=== PATIENT | female | born 1990 | race Caucasian/White ===

== ENCOUNTER 2021-09-17 14:03 | Emergency (ER) | payer OTHER ==
--- OUTSIDE RECORDS SUMMARY | 2021-09-17 14:07 | XMS REPORT | Continuity of Care Document ---
:1990 Author Organization [facility] t Address [address] [place] [address] Care Team Providers Name Role Phone Jeanette Woodard Primary Care Physician Melanie Attending Clinician Unavailable Lucien COOPER Attending Clinician Luis HURTADO Attending Clinician LUIS Attending Clinician Unavailable Doctor Unassigned, Name Attending Clinician Unavailable Bisi JONES, T Attending Clinician Unavailable EVAN Attending Clinician Unavailable ISELA Attending Clinician Unavailable Bev Attending Clinician [phone] Carole Fisher Attending Clinician [phone] KIMBERLYN Attending Clinician Unavailable Provider, Urgent Care Attending Clinician Unavailable Evgeny JONES, S Attending Clinician Unavailable Lab, Fam Pob I Attending Clinician Unavailable Aisha HURTADO Attending Clinician AISHA Attending Clinician Unavailable Karri Attending Clinician [phone] Ruben Attending Clinician [phone] KAVON Attending Clinician Unavailable EVAN Admitting Clinician Unavailable ISELA Admitting Clinician Unavailable KIMBERLYN Admitting Clinician Unavailable Payers Payer Name Policy Type Policy Number Effective Date Expiration Date Rajan pittman [facility] [id number] 2019 00:00:00 [employer] (MEDICAID HMO) Problems Condition Condition Condition Status Onset Resolution Last Treating Co mments Source Name Details Category Date Date Treatment Clinician Date Ulnar Ulnar Problem Active Univers neuropathy neuropathy HL7.CCDAR2 [facility] [place] [facility] Chronic Chronic Problem Active Univers headache headache HL7.CCDAR2 it [facility] [place] [facility] Median Median Problem Active Univers neuropathy neuropathy HL7.CCDAR2 [facility] [place] [facility] History of History of Problem Resolve Univers depression depression HL7.CCDAR2 d [facility] [place] [facility] No known No known Disease Unive rs active active ity of problems problems [facility] Carpal Problem Active 2019-12-27 Memor ia tunnel 00:04:06 l syndrome Carpal Kwadwo n (disorder) tunnel syndrome (disorder) Active Problem 12/27/2019 [facility] 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 NO KNOWN Drug Active Univers ALLERGIE Class ity of S [facility] Latex Adverse Active Info Not [facility] Reaction Available [facility] Family History Family Member Diagnosis Comments Start Date Stop Date Source Mother Family history of Univers ity of Hyperthyroidism with [facility] [place] [facility] Maria D disease Father Family history of Univers ity of hypertension [place] [facility] Father Family history of Univers ity of diabetes mellitus [place] [facility] Social History Social Habit Start Date Stop Date Quantity Comments Source Exposure to Not sure [facility] SARS-CoV-2 (event) Medica l Branch Tobacco use and 2021-08-28 2021-08-28 Never used [facility] exposure 00:00:00 00:00:00 Medical Branch Sex Ass[birth year] [facility] 00:00:00 00:00:00 Medical Branch Smoking Status Start Date Stop Date Source Unknown if ever smoked Universit y [facility] [place] Never smoker [facility] [place] [facility] Medications Ordered Filled Start Stop Current Ordering Indication Dosage Frequency Signature Comments Components Source Medication Medication Date Date Medication? Clinician (SIG) Name Name triamcinolo 2021- No [id number] 40mg Univers ne 08-28 ity of acetonide 23:00: 22:03 [place] (KENALOG) 00 :00 Medical injection Branch 40 mg triamcinolo 2021- No [id number] 40mg 40 mg, Univers ne 08-28 Intramuscu ity of acetonide 23:00: 22:03 [place], ONCE, [place] ([place] 00 :00 1 dose, On Medi camryn injection Tue Branch 40 mg 08/28/21 at 1800, Routine cetirizine Yes [id number] 10mg Take 1 Univers (ZYRTEC) 10 -22 tablet by ity of mg tablet 00:00: mouth [place] 00 daily. Medical Branch famotidine Yes [id number] 40mg Take 1 Univers 40 mg - tablet by ity of tablet 00:00: mouth 2 [place] 00 (two) Medical times Branch daily. Diclofenac Diclofenac Yes PHIL 1 TAKE 1 Univers Potassium Potassium 8-30 BROWN M.D. TABLET ity of 50 MG Oral 50 MG Oral 00:00: ONCE PRN [place] Tablet Tablet 00 headache Physici ans Escitalopra Escitalopra Yes Nadeem not [facility] m Oxalate m Oxalate Simmons defined [facility] Escitalopra Escitalopra Yes U nivers m Oxalate m Oxalate ity o f 20 MG Oral 20 MG Oral [place] Tablet Tablet Physici ans Immunizations Ordered Filled Immunization Date Status Comments Sourc e Immunization Name Name TD 2017-03-09 Completed [facility] 00:00:00 [facility] TDAP 2017-03-09 Completed [facility] 00:00:00 [facility] TDAP 2017-03-09 Completed [facility] :00:00 [facility] TDAP 2017-03-09 Completed [facility] 00:00:00 [facility] TDAP 2017-03-09 Completed [facility] 00:00:00 [facility] TDAP 2017-03-09 Completed [facility] 00:00:00 [facility] TDAP 2017-03-09 Completed [facility] :00:00 [place] [facility] Vital Signs Vital Name Observation Time Observation Value Comments Source Systolic blood 2021-08-28 112 mm[Hg] University of pressure 21:45:00 [facility] Diastolic blood 2021-08-28 70 mm[Hg] University o f pressure 21:45:00 [facility] Heart rate 2021-08-28 70 /min University 21:45:00 [facility] Body temperature 2021-08-28 36.56 Clementina [facility] 21:45:00 [facility] Respiratory rate 2021-08-28 18 /min University 21:45:00 [facility] Body height 2021-08-28 149.9 cm University 21:45:00 [facility] Body weight 2021-08-28 82.101 kg University 21:45:00 [facility] BMI 2021-08-28 36.56 kg/m2 University 21:45:00 [facility] Oxygen saturation 2021-08-28 100 /min [facility] Arterial blood 21:45:00 [facility] by Pulse oximetry Branch BP Systolic 2018-02-04 96 mm[Hg] Location: [facility] 10:20:00 Position: [place] [facility] Sitting BP Diastolic 2018-02-04 63 mm[Hg] Location: [facility] 10:20:00 Position: [place] [facility] Sitting Height 2018-02-04 59 [in_us] [facility] 10:20:00 [place] [facility] Weight 2018-02-04 159 [lb_av] [facility] 10:20:00 [place] [facility] Body Mass Index 2018-02-04 32.11 kg/m2 University o f Calculated 10:20:00 [place] [facility] Temperature 2018-02-04 98.6 [degF] Method: Oral [facility] 10:20:00 [place] [facility] Heart Rate 2018-02-04 62 /min Location: R [facility] 10:20:00 Brachial [place] [facility] Artery; Procedures Procedure Date / Time Performing Clinician Source Performed ASSIGNMENT OF BENEFITS 2021-08-28 21:37:32 Doctor Unassigned, Un iversity [facility] [place] [facility] [UTP] EMG 2018-02-04 00:00:00 University o f [place] [facility] History of Cholecystectomy Unive [facility] Physicians Plan of Care Planned Activity Planned Date Details Comments Source Diagnostic Test 2018-02-04 [UTP] EMG [code = [facility] Pending 00:00:00 [UTP] EMG] Physicians Encounters Start End Encounter Admission Attending Care Care Encounter Source Date/Time Date/Time Type Type Clinicians Facility Department ID 2021-08-17 Outpatient Karri ACTIVITY THERAPY SPECIALIST, [facility] [id number] [facility] 09:18[facility]01 [facility] 2021-08-14 Outpatient Karri ACTIVITY THERAPY SPECIALIST, [facility] [id number] [facility] 11:[facility]03 [facility] 2021-07-04 Outpatient Karri ACTIVITY THERAPY SPECIALIST, [facility] [id number] [facility] 11:27:46 [facility] 2021-07-04 Outpatient Melanie, [facility] [id number] [facility] 11:26:38 Audie [id number] [facility] 2021-08-28 2021-08-28 Urgent Eneida Mcgraw [facility] [id number] Univers 16:40:00 17:00:00 Care [facility] [id number] ity of [place] [id number] [place] MEÑO?BLEA [phone] [address] MEDICAL OFFICE BUILDING 2021-08-28 2021-08-28 Outpatient R [facility] [id number] Univers 16:40:00 16:40:00 [id number] ity of [facility] 2021-08-28 2021-08-28 Outpatient R [facility] [id number] Univers 16:40:00 16:40:00 [facility] ity o f [facility] 2021-08-28 2021-08-28 Orders Doctor JAMIE [id number] Univers 00:00:00 00:00:00 Only Unassigned, ELIAS [id number] [facility] [id number] [place] [phone] [address] 2021-08-21 2021-08-21 ambulatory [facility] [id number] [facility] 2021-08-03 2021-08-03 Letter JAMIE Mathews [id number] Univers 00:00:00 00:00:00 (Out) Edith GRIFFIN [id number] [facility] [id number] [place] [phone] [place] [address] Branch 2021-07-16 2021-07-16 Outpatient BEV_S [facility] [id number] [place] 05:07:00 05:07:00 [facility] 2021-04-19 2021-04-19 Outpatient [facility] [address] [place] 04:48:00 04:48:00 _L 111 [facility] 2021-04-19 2021-04-19 [facility] [id number] 00:00:00 00:00:00 Amelia [id number] 2021-04-13 2021-04-13 Outpatient [facility] [id number] 09:40:00 09:40:00 _L 105 [facility] 2021-04-13 2021-04-13 Outpatient [facility] [id number] 00:00:00 00:00:00 , Janel [id number] Carole [id number] 2021-04-13 2021-04-13 Outpatient [facility] [id number] 00:00:00 00:00:00 , Janel [id number] Carole [id number] 2021-04-09 2021-04-09 Outpatient [facility] [id number] 04:24:00 04:24:00 _L 101 [facility] 2021-02-09 2021-02-09 Outpatient [facility] [address] 10:22:00 10:22:00 _L 903 [facility] 2021-02-09 2021-02-09 Outpatient Bev [facility] [id number] 00:00:00 00:00:00 Amelia [id number] 2021-02-09 2021-02-09 Outpatient Bev [facility] [id number] 00:00:00 00:00:00 Amelia [id number] 2020-10-19 2020-10-19 Outpatient [facility] [id number] 04:10:00 04:10:00 _L 513 [facility] 2020-10-19 2020-10-19 Outpatient [facility] [address] 04:10:00 04:10:00 _L 519 [facility] 2020-09-12 2020-09-12 Outpatient [facility] [address] 09:23:00 09:23:00 _L 406 [facility] 2020-07-31 2020-07-31 Outpatient [facility] [address] [place] 12:01:00 12:01:00 _L 222 [facility] 2020-07-18 2020-07-18 Outpatient [facility] [address] 04:40:00 04:40:00 _L 209 [facility] 2020-06-30 2020-06-30 Outpatient [facility] [address] 09:49:00 09:49:00 _L 122 [facility] 2020-06-29 2020-06-29 Outpatient [facility] [address] 04:56:00 04:56:00 _L 121 [facility] 2020-06-29 2020-06-29 Outpatient [facility] [id number] 00:00:00 00:00:00 , Janel [id number] Carole [id number] 2020-06-05 2020-06-05 Outpatient [facility]NER[facility] 79- [place] 05:34:00 05:34:00 228 [facility] 2020-05-31 2020-05-31 Patient Provider, JAMIE [id number] Univers 00:00:00 00:00:00 Secure Msg Ang Urgent ELIAS [id number] ity of [facility] [id number] [place] [phone] [address] 2020-05-31 2020-05-31 Telephone PepperJAMIE [id number] Univers 00:00:00 00:00:00 Sylvia Tolentino ELIAS [id number] ity of [facility] [id number] [place] [phone] [address] 2020-05-29 2020-05-29 Laboratory Lab, Adc Fam Pob I [facility] [id number] Univers 09:23:48 09:36:10 Only Amalia [facility] [id number] ity of [place] [id number] [place] Professio [phone] [address] Office Building One 2020-05-29 2020-05-29 Outpatient R AISHA [facility] [id number] Univers 09:20:00 09:20:00 AMALIA ity of [facility] 2020-05-29 2020-05-29 Letter Doctor JAMIE [id number] Univers 00:00:00 00:00:00 (Out) Unassigned, ELIAS [id number] ity of [place] [id number] [place] [phone] [address] 2020-05-29 2020-05-29 Letter Aisha [facility] [id number] Univers 00:00:00 00:00:00 (Out) Amalia [facility] [id number] it y of [place] [id number] [place] Gisela [phone] [place] dical nal [address] 2020-02-18 2020-02-18 Outpatient MHIE MHIE [id number] Memoria 14:15:00 14:15:00 02 l Cristopher 2019-12-24 2019-12-25 Outpatient nullFlavo MNA [id number] Memoria 13:15:00 04:59:59 r Neurology 01 l [place] Cristopher 2019-12-24 2019-12-24 Ambulatory nullFlavo MNA [id number] Memoria 13:15:00 13:15:00 Pre-Reg r Neurology 00 l [place] 2019-11-30 2019-11-30 [facility] [id number] 11:40:00 11:40:00 t [facility] 2019-11-22 2019-11-22 Out[facility] [id number] 14:30:00 14:30:00 t [facility] Clin[facility] 2019-10-29 2019-10-29 Outpatient Karri [facility] [id number] 00:00:00 00:00:00 Julia [id number] 2019-10-28 2019-10-28 Outpatient Ruben [facility] [id number] 00:00:00 00:00:00 Lauren [id number] 2018-02-04 2018-02-04 Appointmen EDMUNDO JACOBSON Neurology [id number] Univers 10:00:00 10:00:00 t; PHIL JACOBSON ity of Romana VILLARREAL M.D. Physici ans Results This patient has no known results.
--- NOTE | 2021-09-17 15:18 | RAD REPORT ---
EXAM DESCRIPTION: RAD - Knee Left 3 View - 09/17/2021 3:03 pm CLINICAL HISTORY: PAIN COMPARISON: No comparisons FINDINGS: Mild medial compartment narrowing. A suprapatellar joint effusion is likely present, moder ate in size. No fracture or dislocation seen. Followup nonemergent MRI imaging would be suggested to assess for internal derangement.
--- NOTE | 2021-09-17 15:53 | ER ---
Nurse's Notes [facility] Name: Sheba Leos Age: 31 yrs Sex: Female : 1990 Arrival Date: 09/17/2021 Time: 14:06 Bed 4 Private MD: Diagnosis: Unspecified internal derangement of left knee Presentation: 09/17 14:21 Chief complaint: Patient states: "It started yesterday and I think I overworked my left jd3 knee. It is swollen and bruised so i think I tore something. tramadol didn't help and hydrocodone didn't help ether. It gave out on me yesterday.". Coronavirus screen: At this time, the client does not indicate any symptoms associated with coronavirus-19. Ebola Screen: No symptoms or risks identified at this time. Initial Sepsis Screen: Does the patient meet any 2 criteria? No. Patient's initial sepsis screen is negative. Does the patient have a suspected source of infection? No. Patient's initial sepsis screen is negative. Risk Assessment: Do you want to hurt yourself or someone else? Patient reports no desire to harm self or others. Onset of symptoms was September 16, 2021. 14:21 Method Of Arrival: Ambulatory jd3 14:21 Acuity: KRISTAL 4 jd3 Triage Assessment: 14:28 General: Appears in no apparent distress. comfortable, Behavior is calm, cooperative, jd3 appropriate for age. Pain: Complains of pain in left knee Quality of pain is described as sharp, shooting, tender. EENT: No signs and/or symptoms were reported regarding the EENT system. Neuro: Level of Consciousness is awake, alert, obeys commands, Oriented to person, place, time, situation. Cardiovascular: Capillary refill < 3 seconds Patient's skin is warm and dry. Respiratory: Airway is patent Respiratory effort is even, unlabored, Respiratory pattern is regular, symmetrical, Denies cough, shortness of breath. GI: No signs and/or symptoms were reported involving the gastrointestinal system. : No signs and/or symptoms were reported regarding the genitourinary system. Derm: Skin is intact, Skin is dry, Skin is normal, Skin temperature is warm. Musculoskeletal: Circulation, motion, and sensation intact. Range of motion: limited in left knee. SHANK TURNER: 14:25 LMP N/A - control method jd3 Historical: - Allergies: 14:24 Codeine; jd3 14:24 Adhesives; jd3 - Home Meds: 14:24 citalopram oral [Active]; cetirizine oral [Active]; jd3 - PMHx: 14:24 seasonal allergies; jd3 - PSHx: 14:24 Cholecystectomy; jd3 - Immunization history:: Adult Immunizations up to date, Client reports receiving the 2nd dose of the Covid vaccine, Flu vaccine is not up to date. - Social history:: Smoking status: Patient denies any tobacco usage or history of. Screenin:20 Abuse screen: Denies threats or abuse. Denies injuries from another. Nutritional ww screening: No deficits noted. Tuberculosis screening: No symptoms or risk factors identified. Fall Risk None identified. Assessment: 16:20 General: Appears in no apparent distress. comfortable, Behavior is calm, cooperative. ww Pain: Complains of pain in left knee. Neuro: Level of Consciousness is awake, alert, obeys commands, Oriented to person, place, time, situation, Speech is normal. Cardiovascular: Patient's skin is warm and dry. Respiratory: Airway is patent Respiratory effort is even, unlabored, Respiratory pattern is regular, symmetrical. GI: No signs and/or symptoms were reported involving the gastrointestinal system. : No signs and/or symptoms were reported regarding the genitourinary system. EENT: No signs and/or symptoms were reported regarding the EENT system. Vital Signs: 14:25 BP 116 / 86; Pulse 74; Resp 16 S; Temp 97.6(TE); Pulse Ox 100% on R/A; Weight 79.38 kg jd3 (R); Height 4 ft. 11 in. (149.86 cm) (R); Pain 10/10; 14:25 Body Mass Index 35.35 (79.38 kg, 149.86 cm) jd3 ED Course: 14:06 Patient arrived in ED. mr 14:23 Triage completed. jd3 14:25 Cody Yancey NP is PHCP. pm1 14:25 Kurtis Graves MD is Attending Physician. pm1 14:26 Arm band placed on. jd3 14:28 Patient notified of wait time. jd3 15:05 Knee Left 3 View XRAY In Process Unspecified. EDMS 15:54 Liliam Valdez, RN is Primary Nurse. ww 16:20 Patient has correct armband on for positive identification. Bed in low position. Call ww light in reach. Side rails up X 1. 16:20 No provider procedures requiring assistance completed. Patient did not have IV access ww during this emergency room visit. Administered Medications: 16:19 Drug: Ketorolac 60 mg Route: IM; Site: left gluteus; ww 16:19 Drug: Lidoderm Patch 5 % (700 mg/patch) 1 patches Route: Topical; Site: affected area; ww Outcome: 15:52 Discharge ordered by MD. pm1 16:20 Discharged to home via wheelchair. ww 16:20 Condition: stable 16:20 Discharge instructions given to patient, Instructed on discharge instructions, follow up and referral plans. medication usage, safety practices, crutch walking, Demonstrated understanding of instructions, follow-up care, medications, crutch walking, splint care, Prescriptions given X 1. 16:21 Patient left the ED. ww Signatures: Dispatcher [employer] [facility] Nena Barajas mr YanceyCody, BURGLAR ALARM OPERATOR BURGLAR ALARM OPERATOR pm1 Krishna Kumar, ROBERT RN jLiliam Rahman, RN RN ww Corrections: (The following items were deleted from the chart) 14:24 14:21 Chief complaint: Patient states: "It started yesterday and I think I overworked jd3 my left knee. It is swollen and bruised so i think I tore something. tramadol didn't help and hydrocodone didn't help ether." jd3
--- NOTE | 2021-09-17 15:53 | EDPHYS ---
Physician Documentation [facility] Name: Sheba Leos Age: 31 yrs Sex: Female : 1990 Arrival Date: 09/17/2021 Time: 14:06 Bed 4 Private MD: ED Physician Kurtis Graves HPI: 09/17 14:33 This 31 yrs old Female presents to ER via Ambulatory with complaints of Fall Injury, pm1 Knee Injury. 14:33 Onset: The symptoms/episode began/occurred Ongoing for a few weeks. She saw orthopedics pm1 last week for the same complaint and was recommended a MRI. Her insurance company is not approving her MRI so the patient was sent to the ER with the anticipation that a MRI could be performed. Associated injuries: The patient sustained left knee. Severity of symptoms: in the emergency department the symptoms are actually worse, left knee buckled and she fell down. No injury. The patient has not experienced similar symptoms in the past. The patient has been recently seen by a physician: an orthopedic surgeon, with similar presenting complaints, recommended MRI. SUPPLY CHAIN COORDINATOR: 14:25 LMP N/A - control method jd3 Historical: - Allergies: 14:24 Codeine; jd3 14:24 Adhesives; jd3 - Home Meds: 14:24 citalopram oral [Active]; cetirizine oral [Active]; jd3 - PMHx: 14:24 seasonal allergies; jd3 - PSHx: 14:24 Cholecystectomy; jd3 - Immunization history:: Adult Immunizations up to date, Client reports receiving the 2nd dose of the Covid vaccine, Flu vaccine is not up to date. - Social history:: Smoking status: Patient denies any tobacco usage or history of. ROS: 14:33 Constitutional: Negative for fever, chills, and weight loss, Cardiovascular: Negative pm1 for chest pain, palpitations, and edema, Respiratory: Negative for shortness of breath, cough, wheezing, and pleuritic chest pain. 14:33 Skin: Negative for injury, rash, and discoloration, Neuro: Negative for headache, weakness, numbness, tingling, and seizure. 14:33 MS/extremity: Positive for pain, of the left knee, Negative for decreased range of motion, deformity. 14:33 All other systems are negative. Exam: 14:33 Constitutional: This is a well developed, well nourished patient who is awake, alert, pm1 and in no acute distress. Head/Face: Normocephalic, atraumatic. 14:33 Skin: Warm, dry with normal turgor. Normal color with no rashes, no lesions, and no evidence of cellulitis. 14:33 Cardiovascular: Exam negative for acute changes, Rate: normal, Rhythm: regular, Pulses: no pulse deficits are appreciated. 14:33 Respiratory: Exam negative for acute changes, respiratory distress, shortness of breath. 14:33 Musculoskeletal/extremity: Extremities: grossly normal except: noted in the medial aspect of left knee pain with medial rotation and valgus stressin:33 Neuro: Exam negative for acute changes, Orientation: is normal, Mentation: is normal, Motor: moves all fours. Vital Signs: 14:25 BP 116 / 86; Pulse 74; Resp 16 S; Temp 97.6(TE); Pulse Ox 100% on R/A; Weight 79.38 kg jd3 (R); Height 4 ft. 11 in. (149.86 cm) (R); Pain 10/10; 14:25 Body Mass Index 35.35 (79.38 kg, 149.86 cm) jd3 MDM: 14:44 Data reviewed: vital signs. Data interpreted: Pulse oximetry: on room air is 100 %. pm1 Interpretation: normal. 15:03 Patient medically screened. pm1 15:51 Counseling: I had a detailed discussion with the patient and/or guardian regarding: the pm1 historical points, exam findings, and any diagnostic results supporting the discharge/admit diagnosis, radiology results, the need for outpatient follow up, for definitive care, a orthopedic surgeon, to return to the emergency department if symptoms worsen or persist or if there are any questions or concerns that arise at home. 16:08 ED course: No crutches available in the hospital. A prescription was provided. pm1 09/17 14:33 Order name: Knee Left 3 View XRAY; Complete Time: 15:25 pm1 09/17 14:33 Order name: Knee Immobilizer; Complete Time: 16:19 pm1 Administered Medications: 16:19 Drug: Ketorolac 60 mg Route: IM; Site: left gluteus; ww 16:19 Drug: Lidoderm Patch 5 % (700 mg/patch) 1 patches Route: Topical; Site: affected area; ww Disposition: 19:15 Co-signature as Attending Physician, Kurtis Graves MD. rn Disposition Summary: 09/17/21 15:52 Discharge Ordered Location: Home pm1 Problem: new pm1 Symptoms: have improved pm1 Condition: Stable pm1 Diagnosis - Unspecified internal derangement of left knee pm1 Followup: pm1 - With: Emergency Department - When: As needed - Reason: Worsening of condition Followup: pm1 - With: Private Physician - When: 2 - 3 days - Reason: Recheck today's complaints, Continuance of care, Re-evaluation by your physician Discharge Instructions: - Discharge Summary Sheet pm1 - Crutch Use, Adult pm1 - How to Use a Knee Immobilizer pm1 - Acute Knee Pain, Adult pm1 Forms: - Medication Reconciliation Form pm1 - Thank You Letter pm1 - Antibiotic Education pm1 - Prescription Opioid Use pm1 Prescriptions: - Tylenol-Codeine #3 300 mg-30 mg Oral - take 2 tablet by ORAL route every 6 hours As needed; 20 tablet; Refills: 0, pm1 Product Selection Permitted - Crutches - One pair of Adult crutches; ; Refills: 0, Product Selection Permitted pm1 Signatures: Dispatcher [employer] EDKurtis Raines MD MD rn Marinas, Patrick, [employer] PRODUCE RUNNER pm1 Krishna Kumar RN RN Liliam Bautista RN RN ww Corrections: (The following items were deleted from the chart) 16:19 16:07 Crutches ordered. pm1 ww
[2021-09-17] MEDS ORDERED: LIDOCAINE 4% PATCH ONE (15:54)
[2021-09-17] MEDS ORDERED: KETOROLAC 30 MG/ML INJ ONE (15:54)
[2021-09-17 18:49] VITALS: BP 116/86; TEMP 97.6; O2SAT 100
== END 2021-09-17 16:21 | disposition home or self-care (01) ==
LOC: ER 14:03
DX: M23.92 Unspecified internal derangement of left knee (principal); W18.30XA Fall on same level, unspecified, initial encounter; Z88.5 Allergy status to narcotic agent; Z91.048 Other nonmedicinal substance allergy status
CPT/HCPCS: 96372; 99284

== ENCOUNTER 2021-12-06 05:58 | Day surgery (SDC) | payer OTHER ==
--- NOTE | 2021-12-03 10:11 | RAD REPORT ---
EXAM DESCRIPTION: Doug Remy (2 Views)12/03/2021 10:06 am CLINICAL HISTORY: Preop for knee surgery COMPARISON: None FINDINGS: The lungs appear clear of acute infiltrate. The heart is normal size IMPRESSION: No acute abnormalities displayed
[2021-12-03 10:33] LABS: SARS-CoV-2 Antigen Rapid Res Negative (Negative)
[2021-12-03 10:36] LABS: Absolute Lymphocytes (CBC) 2.8 K/uL (0.7-4.9); Hematocrit 42.3 % (36.0-45.0); Lymphocytes % 23.4 % (15.3-44.8); MCV 93.5 fL (80-100); RBC Red Blood Cell Count 4.52 M/uL (3.86-4.86)
[2021-12-03 10:38] LABS: Protime INR 1.03
--- NOTE | 2021-12-03 14:37 | EKG ---
Test Date: 2021-12-03 Test Time: 09:48:21 Marketing Ambassador: CRISTHIAN MEASUREMENT RESULTS: Intervals: Rate: 58 WA: 136 QRSD: 72 QT: 396 QTc: 388 [place]: P: 18 WA: 136 QRS: 37 T: 21 INTERPRETIVE STATEMENTS: Sinus bradycardia with sinus arrhythmia Nonspecific T wave abnormality Abnormal ECG No previous ECG available for comparison Electronically Signed On 12-03-21 14:37:18 CDT by Caleb Biggs
[2021-12-06] MEDS ORDERED: Ringers Lactate 1,000 ML IV ONE (06:33)
[2021-12-06] MEDS ORDERED: CELECOXIB 100 MG CAPSULE ONE (07:08)
[2021-12-06] MEDS ORDERED: ACETAMINOPHEN 500 MG TAB ONE (07:08)
[2021-12-06] MEDS ORDERED: BUPIVACAINE 0.25% PF 10 ML VIAL ONE (07:13)
[2021-12-06] MEDS ORDERED: FENTANYL CITR 100 MCG/2 ML ONE (07:13)
[2021-12-06] MEDS ORDERED: LIDOCAINE 1% MPF 5 ML VIAL ONE (07:13)
[2021-12-06] MEDS ORDERED: dexAMETHasone 10 MG/ML VIAL ONE ×2 (07:13→08:13)
[2021-12-06] MEDS ORDERED: MIDAZOLAM HCL 2 MG/2 ML INJ ONE (07:14)
[2021-12-06] MEDS ORDERED: EPINEPHRINE/PF 1 MG/ML AMP ONE (07:14)
[2021-12-06 08:01] LABS: Urine Specific Gravity/Preg >1.030 (1.005-1.030)
[2021-12-06] MEDS: CEFAZOLIN 2 GM IN 0.9% NACL 2 GM/100 ML BAG ONE ×2 (08:05→08:07)
[2021-12-06] MEDS ORDERED: propofoL 200 MG/20 ML VIAL IV ONE (08:13)
[2021-12-06] MEDS ORDERED: KETOROLAC 30 MG/ML INJ ONE (08:13)
[2021-12-06] MEDS ORDERED: LIDOCAINE 2% MPF 5 ML VIAL ONE (08:13)
[2021-12-06] MEDS ORDERED: ONDANSETRON 4 MG/2 ML VIAL ONE (08:15)
--- NOTE | 2021-12-06 10:24 | P.BOP ---
Preoperative diagnosis: left knee ACL tear Postoperative diagnosis: same Primary procedure: left knee ACL reconstruction with Achilles allograft Store Facility Technician: NONE,NONE Estimated blood loss: 10 cc Specimen: none Findings: see dictation Anesthesia: General Complications: None Implants: 7x20 Biocomposite screw, 10x20 mm Biocomposite screw, swivelock Fluids & blood products: per anesthesia record; TT: 99 mins @ 300 mmHg Transferred to: Recovery Room Condition: Good
[2021-12-06] MEDS: HYDROMORPHONE HCL 1 MG/ML INJ ONE ×2 (10:52→11:01)
--- NOTE | 2021-12-06 11:16 | RAD REPORT ---
EXAM DESCRIPTION: RAD - Knee Left 2 View - 12/06/2021 11:10 am CLINICAL HISTORY: S/P LEFT ACL REPAIR COMPARISON: Knee Left 3 View dated 09/17/2021; Knee Left Wo Cont dated 09/19/2021 FINDINGS/IMPRESSION: No acute fracture. No malalignment. Small volume of fluid and gas within the ofelia int which is not unexpected. Surgical changes at the anterior tibia from ACL repair.
[2021-12-06] MEDS ORDERED: HYDROMORPHONE HCL 1 MG/ML INJ ONE (11:17)
[2021-12-06] MEDS ORDERED: HYDROCODONE/APAP 5/325 MG TAB ONE (11:46)
[2021-12-06 12:20] VITALS: BP 94/57; TEMP 98; O2SAT 99
--- NOTE | 2021-12-07 15:57 | OP ---
Date of Procedure: 12/06/2021 Surgeon: Nadeem Simmons MD Preoperative Diagnosis: Left knee anterior cruciate ligament tear. Postoperative Diagnosis: Left knee anterior cruciate ligament tear. Procedure Performed: Left knee ACL reconstruction with Achilles allograft. Anesthesia: General LMA. Fluids: Per the Anesthesia record. Estimated Blood Loss: 10 cc. Complications: None. Implants: 7 x 20 Arthrex BioComposite screw, a 10 x 20 mm Arthrex BioComposite screw, and 4.75 mm Sw iveLock. Tourniquet Time: 39 minutes at 200 mmHg. Indication For Procedure: Sheba is a 31-year-old female, who presented to my clinic with signs and symptoms as well as MRI findings consistent with a left knee ACL tear with knee instability. I disc ussed with the patient at length risks and benefits associated with operative and nonoperative treatm ent. She expressed understanding and elected to proceed with operative treatment. Description Of Procedure: After informed consent was obtained, the patient was identified in the pre operative holding area. The left lower extremity was marked. The patient was then brought back to t PACU and underwent a left-sided femoral nerve block. She was then brought back to the operating r oom and transferred to the operating table in supine fashion and placed under general LMA anesthesia. The left lower extremity was then prepped and draped in usual sterile fashion. A time-out was init iated. The correct patient and procedure were confirmed and identified. The patient did receive her preoperative prophylactic antibiotics. Left lower extremity was examined and the patient did have a tibial instability with Monika's as well as instability with pivot-shift maneuver. The left lower extremity was then exsanguinated using an Esmarch and the tourniquet was inflated to 300 mmHg. The a nterolateral portal was created and an anteromedial portal was created under direct visualization usi ng spinal needle. Diagnostic arthroscopy was performed. There were no loose bodies found in the med ial and lateral gutters. There is overall no significant chondromalacia of the patella pa tellar trochlear groove. The arthroscope was then brought into medial compartment and the patient wa s noted have a stable and intact medial meniscus and no significant chondromalacia noted of the media l femoral condyle and medial tibial plateau. The arthroscope was then brought in the intercondylar n otch. The patient was noted to have an ACL tear with insufficiency. The ACL remnants were then debr ided using an arthroscopic shaver. The soft tissues were debrided off the lateral femoral condyle fo r preparation of tunnel placement. Arthroscope was then brought in lateral compartment and the patie nt was noted to have an intact lateral meniscus, which was stable to probe and no significant chondro malacia of the lateral femoral condyle and lateral tibial plateau. On the back table, the Achilles a llograft was then prepared using a 9 x 20 mm and a 10 mm tissue stem to approximately kennedy th of 90 mm. First, attention was taken to create the tibial tunnel. An 11 mm retro cutter was then placed on the tibial footprint of the ACL on the tibial plateau. The tibia was then retro reamed. Bony debris was then removed using arthroscopic shaver. A plug was then placed. The knee was then p laced in hyperflexion and through the anteromedial portal, a guide pin was then placed through the fe moral footprint of the ACL and out the lateral thigh. A 4.5 mm reamer was then placed over the to ensure proper depth and positioning of the followed by a 10 mm low-profile reamer to a depth of approximately 25 mm. Bony debris was then removed using an arthroscopic shaver. The suture was then passed through the femoral and tibial tunnel. The graft was then placed through the tibial tunnel, brought into the femoral tunnel and positioned using a hemostat. A 7 x 20 mm Arthrex BioComposite screw was then placed with good overall fixation of the bone plug within the femoral arianna elijah. The knee was then placed through gentle range of motion to from the graft. There wa s no impingement with hyperextension of the knee. The knee was then placed in slight flexion and the graft was then tension placed on the sutures. A 10 x 20 mm BioComposite Delta screw was then placed within the tibial tunnel, so overall good fixation. Sutures were then tied over a post, however, replaced with a SwiveLock a centimeter distal to the tibial tunnel for backup fixation on th e tibial side. The knee was then examined. The patient had a stable Monika's. Postoperatively, th e wounds were then irrigated thoroughly with normal saline. The portals were approximated using a 4- 0 Monocryl. Sterile dressings were applied. Tourniquet was let down. The patient was awakened and transferred to PACU in stable condition. Postoperative Plan: The patient will be weightbearing as tolerated and she will follow up in clinic in 1 week for wound check. She will begin physical therapy for delayed ACL reconstruction protocol 2 weeks postop. MIKE/JOSEPHINE Voice ID: [id number] Report ID: [id number]
== END 2021-12-06 12:30 | disposition home or self-care (01) ==
LOC: OR 05:58
PROVIDERS: ATTEND Orthopaedic Surgery Sports Medicine
PROC: 0MRP4KZ Replacement of Left Knee Bursa and Ligament with Nonautologous Tissue Substitute, Percutaneous Endoscopic Approach (ICD-10-PCS; principal; 2021-12-06 08:00)
DX: S83.512A Sprain of anterior cruciate ligament of left knee, initial encounter (principal); F41.9 Anxiety disorder, unspecified; F32.A Depression, unspecified; Z20.822 Contact with and (suspected) exposure to COVID-19; Z88.5 Allergy status to narcotic agent; Z91.040 Latex allergy status; Z91.048 Other nonmedicinal substance allergy status; Z82.49 Family history of ischemic heart disease and other diseases of the circulatory system; Z83.3 Family history of diabetes mellitus; Z80.9 Family history of malignant neoplasm, unspecified
CPT/HCPCS: 93005; 85025; 80048; 36415; 81025; 85610; 85730; 71046; 73560; 87811; 29888; J2704; J0171; J2250; J3010; J1100 ×2; J1170 ×2; J0690; J7120; J2405